=== PATIENT | female | born 1945 | race Caucasian/White ===

== ENCOUNTER → 2017-04-08 | Outpatient (CLI) | payer MEDICARE ==
[~2017-04-08] MED LIST: LIDOCAINE 1%/EPI 1:100,000 50 ML, SODIUM BICARBONATE VIAL 5 MEQ in IV NORMAL SALINE 100... SQ ONE
--- NOTE | 2017-04-08 15:40 | CARD ---
APPROVED REPORT Patient StatusOUT-PATIENT Embroidery Operator: LARISSA HARRIS Procedure(s) performed: Endovenous radiofrequency ablation of the rightlesser saphenous vein INDICATION FOR PROCEDURE The indication(s) include : Symptomatic Chronic Venous Insufficiency with Varicose Veins, lower extre mity pain and edema. PROCEDURE NARRATIVE The patient was transferred to the procedure suite and the insufficient saphenous vein was mapped by ultrasound and diagrammed on the underlying skin. The depth and diameter of the vein(s) to be treate d was documented. The varicose tributary veins and suitable access sites were identified and mapped as well. The patient was then positioned prone on the procedure table. The entire limb was sterilel y prepared and the lower extremity and treatment table were sterilely draped. The RF catheter was p laced on the sterile field, flushed and wiped down, prepared, and connected by a sterile cable. The patient was placed in reverse-Trendelenburg position and local anesthesia was instilled in the sk in overlying the access site. A skin incision was made overlying the identified and mapped lesser sa phenous vein entry site. The vein was punctured through the incision and using ultrasound guidance a nd the Seldinger technique a guide wire was introduced through the needle which was then exchanged ov er the guide wire for a 7 F sheath. The guide wire was removed and the sheath was flushed. The RF p robe was placed into the vein through the sheath and positioned at a point just distal (about 0.5 to 1 cm) to the entrance point of the lesser saphenous vein into the popliteal junction. After the RF probe position was verified by the ultrasound, tumescent anesthesia was infiltrated, und er ultrasound guidance, precisely into the perivenuus compartment along the entire length of vein fro m the entry site to the saphenofemoral junction until a "halo" of fluid was noted around the vein. The patient was then placed in Trendelenburg position. After the RF probe position was again confirm ed with ultrasound imaging, moderate external compression was applied over the RF heating element, an d RF energy was applied. The probe was withdrawn sequentially in 6.5 cm steps with slight overlap of 7 cm segments of ablation and monitored to keep the probe temperature at 120 degrees Celsius and the generator output well below its maximum power. Treatment Segments: 6 Total Length: 12 cm. Tota l Ablation time: 2 minutes. Repeat ultrasound of the saphenous vein was performed confirming successful treatment. The catheter and sheath were withdrawn and hemostasis established with direct pressure. After assuring hemostasis , the skin incision over the saphenous vein was closed with a bandage and an external compression trina ssing was applied from the level of the foot to the most proximal level of the thigh.
== END | disposition home or self-care (01) ==
LOC: VNUS 13:32
PROVIDERS: ATTEND Internal Medicine Cardiovascular Disease
DX: I83.11 Varicose veins of right lower extremity with inflammation (principal)
CPT/HCPCS: 36475; J3490; J7030

== ENCOUNTER → 2017-05-07 | Outpatient (CLI) | payer MEDICARE ==
--- NOTE | 2017-05-08 07:56 | CARD ---
APPROVED REPORT Patient StatusOUT-PATIENT Food Technician: Yogesh Harrison Procedure(s) performed: Stab avulsion of varicose vein tributaries right lower extremity HISTORY : Painful varicose vein tributaries with inflammation. PROCEDURE NARRATIVE After explaining risks and benefits, informed consent was obtained. Patient was brought to the venou s suite and her right leg was prepped and draped in usual fashion. The symptomatic varicose vein tri butaries were mapped and marked using venous ultrasound. The skin and subcutaneous tissues were infi ltrated with local anasthetic followed by tumescent. Small incisions were then made 2 inches apart a long the mapped varicose veins and using venous hook, significant amount of venous material was remov ed from each incision. Hemostasis was secured, steristrips applied to incisions and her leg was wrap ped in jerri wrap. Patient tolerated the procedure well. There were no immediate complications.
== END | disposition home or self-care (01) ==
LOC: VNUS 13:33
PROVIDERS: ATTEND Internal Medicine Cardiovascular Disease
DX: I83.811 Varicose veins of right lower extremity with pain (principal)
CPT/HCPCS: 37765; J3490; J7030

== ENCOUNTER → 2017-05-28 | Outpatient (CLI) | payer MEDICARE, OTHER ==
--- NOTE | 2017-05-28 15:50 | KCIC ---
MRI Lumbar Spine without contrast History: Right leg weakness for 2 to 3 months Technique: Multiplanar, multi sequential noncontrast MR imaging was performed of the lumbar spine. Contrast: None Comparison: None Findings: Lumbar vertebral body stature is preserved. There is mild grade 1 anterior spondylolisthesis at L4-5 and to lesser degree at L3-4. There is [id number] degenerative disc disease at L2-3 and minimally at L3-4 and L4-5 and mild disc desiccation at L5-S1. Conus terminates at L1. The trace L2-3 endplate edema is likely reactive/degenerative in etiology. There is mild lumbar levoscoliosis. Small T2 hyperintense lesion of the visualized left kidney is most likely a cyst. There are likely small Tarlov cysts at S2, largest 0.7 cm. L1-L2: Spinal canal and neural foramina are adequate. There is mild buckling of the ligamentum flavum and facet hypertrophic change. L2-L3: There is minimal posterior bulge. There is moderate buckling of the ligamentum flavum and [id number] facet degenerative change. There is very mild narrowing of the far right lateral recess. Neural foramina are not significantly narrowed. L3-L4: There is fairly severe buckling of the ligamentum flavum and facet degenerative change. There is minimal posterior bulge. There is overall mild spinal stenosis. There is mild narrowing of the left neural foramen, right neural foramen adequate. L4-L5: There is fairly severe facet degenerative change greater on the left. There is moderate to severe buckling of the ligamentum flavum. There is mild narrowing of the far lateral recesses greater on the left. Right neural foramen is adequate. There is mild narrowing of the left neural foramen. L5-S1: There is moderate facet hypertrophic change greater on the left. There is mild buckling of the ligamentum flavum. Spinal canal is adequate. Right neural foramen is adequate. There is mild narrowing of the left neural foramen. Impression: 1. There is overall mild spinal stenosis L3-4, other mild narrowing of the lateral recesses as stated. 2. There is mild grade 1 anterior spondylolisthesis at L3-4 and L4-5. There is multilevel lumbar facet degenerative change. There is mild lumbar levoscoliosis. 3. There is mild neural foramina compromise as stated. 4. There is mild to moderate degenerative disc disease at L2-3, minimally at other levels. Electronically signed by: Kt Rojas MD (05/28/2017 3:47 PM) [id number]
== END | disposition home or self-care (01) ==
LOC: KCIC MRI 14:51
PROVIDERS: ATTEND Specialist
DX: M48.061 Spinal stenosis, lumbar region without neurogenic claudication (principal); M51.36 Other intervertebral disc degeneration, lumbar region; R29.898 Other symptoms and signs involving the musculoskeletal system; R53.1 Weakness
CPT/HCPCS: 72148